=== PATIENT | female | born 1935 | race Caucasian/White ===

== ENCOUNTER 2024-10-01 06:42 | Day surgery (SDC) | payer MEDICARE, SELFPAY ==
--- OUTSIDE RECORDS SUMMARY | 2024-09-19 10:32 | XMS_ITS ---
Author Organization [facility] Address [address] [place] [id number] Care Team Providers Care Broomcorn Sorter Name Role Phone Kaila LUTZ, Lili Primary Care Provider Kiana Mauro Jr, Da Gonsalez [phone] REASON FOR VISIT diarrhea Encounters Encounter Location Date Provider Diagnosis [facility] [address] [place] [phone] 06/25/2024 Da Mauro Jr Diarrhea, unspecified type R19.7 Assessments Encounter Date Diagnosis (ICD Code) Assessment Notes Treatment Notes Treatment Clinical Notes Section Notes 06/25/2024 Diarrhea, unspecified type (ICD-10 - R19.7) Plan Of Treatment Pending Test Test Name Order Date OVA & PARASITES (O&P) 06/25/2024 STOOL WBC 06/25/2024 C DIFFICILE RFLX PCR 06/25/2024 GI PANEL 06/25/2024 Next Appt Details Provider Name:Da pearson Jr, 10/01/2024 07:30:00 AM, [address] [place] [address] , [place], [id number], Progress Notes * CAIRNE GONZALEZOB: 5 (89 yo F)Acc No.[id number]:06/25/2024 Patient:?PRIMITIVO GONZALEZ :1935???Age:89 Y???Sex:Female Address:[facility] [place] [address] Subjective: * Chief Complaints: * ???Diarrhea * Medical History:? * Surgical History:? * Hospitalization/Major Diagno stic Procedure:? * Medications:? Objective: * Vitals:? * Physical Examination:? Assessment: * Assessment: 1.?Diarrhea, unspecified typ e - R19.7 (Primary)??? Plan: * Treatment: * Procedure Codes:? * true * Date:? Generated for Ann green/Maura/Kattyitting on:?09/19/2024 10:31 AM EDT
[2024-09-27 13:01] VITALS: BMI 24.4
--- NOTE | 2024-09-30 10:17 | P.CONAN_ITS ---
Documented by User: Nikki Green NP 09/30/24 10:20 HPI - Anesthesia Eval Consult details Narrative: 89yo F for Colonoscopy PMHx R carotid stenosis, no further info/imaging available on [facility] and [facility] chart review [facility] Past Medical History Medical History History of pelvic fracture Pelvic prolapse Rectal prolapse Vitamin D deficiency Carotid stenosis, right Osteopenia Osteoarthritis Multinodular goiter HLD (hyperlipidemia) Diarrhea Surgical History Surgical History Hx of colonoscopy Social History Social History Advance Directives: No Advance Directives Information Provided: Yes Meds Allergies Allergy/AdvReac Type Severity Reaction Status Date / Time aspirin Allergy Unknown Verified 09/27/24 13:00 Home Medications ?Medication ?Instructions ?Recorded ?Confirmed ?Last Taken ?Type Metamucil 09/27/24 Unknown History Vitamin D3 09/27/24 Unknown History furosemide 20 mg tablet (Lasix) 20 mg PO DAILY 09/27/24 09/27/24 Unknown History lovastatin 10 mg tablet 10 mg PO DAILY 09/27/24 09/27/24 Unknown History Exam Height,Weight and Vital Signs: Height 5 ft 1 in Weight 58.513 kg Assessment and Plan Assessment Anesthesia Assessment: Chart Reviewed Documented by User: Suha Magallanes MD 10/01/24 07:28 [facility] Past Medical History Medical History History of pelvic fracture Pelvic prolapse Rectal prolapse Vitamin D deficiency Carotid stenosis, right Osteopenia Osteoarthritis Multinodular goiter HLD (hyperlipidemia) Diarrhea Surgical History Surgical History Hx of colonoscopy History of Problems with Anesthesia: No Social History Social History Advance Directives: No Advance Directives Information Provided: Yes Meds Allergies Allergy/AdvReac Type Severity Reaction Status Date / Time aspirin Allergy Unknown Verified 09/27/24 13:00 Home Medications ?Medication ?Instructions ?Recorded ?Confirmed ?Last Taken ?Type Metamucil 09/27/24 Unknown History Vitamin D3 09/27/24 Unknown History furosemide 20 mg tablet (Lasix) 20 mg PO DAILY 09/27/24 09/27/24 Unknown History lovastatin 10 mg tablet 10 mg PO DAILY 09/27/24 09/27/24 Unknown History Exam Airway Mallampati Class: III TM Dist: >3cm Neck ROM: Limited Loose/Missing/Broken Teeth: No Heart: RRR Lungs: CTA Assessment and Plan Assessment Anesthesia Assessment: Anesthesia Plan Discussed Final Anesthetic Review History of Problems with Anesthesia: No NPO: Yes ASA Class: III Final Preanesthetic Review: Meds/Allgs Chart Reviewed, Consent Obtained/Reviewed and Anes Risks/Benef Reviewed Patient Risk: Intermediate Procedure Risk: Low Anesthetic Plan Anesthetic Plan: MAC: Disposition: Standard PACU
[2024-10-01 07:24] VITALS: BP 134/65; PULSE 75; RESP 14; TEMP 36.7; O2SAT 98; BMI 24.8
--- NOTE | 2024-10-01 07:37 | MHC.SHP ---
Pre-Procedural Eval Section A - 24 Hr Update-Section A only Date of Service: 10/01/24 Section B - Complete if H&P > 30 days Chief Complaint: Family history of malignant neoplasm of digestive Details of Present Illness: see H&P no changes Relevant Family History (Specify if Yes): No Relevant Social History: None Present Medications: see Short Stay Collaborative assessment Medical History: No relevant PMH Allergies: Allergies Allergy/AdvReac Type Severity Reaction Status Date / Time aspirin Allergy Unknown Verified 10/01/24 07:35 Review of Systems Sugical H&P ROS: Negative: Constitution, Cardiovascular, Respiratory, Neurological, Psychiatric, Hem-Onc, Allergic/Immunologic, Gastrointestinal, Genitourinary, Musculoskeletal, Integumentary, Endocrine and Eyes/Ears/Nose/Throat Exam Surgical H&P Exam: Normal: HEENT, Normal: Heart, Normal: Lungs, Normal: Extremities, Normal: Abdomen, Normal: Skin and Normal: Neurological Plan Diagnosis/Plan: Unchanged I have reviewed the history and physical and performed a pertinent physical examination on my patient. No changes have occurred unless specified. Time Spent With Patient Time: Total time managing care of this patient today ____ minutes.
[2024-10-01 08:23] VITALS: BP 92/50; PULSE 63; RESP 18; TEMP 36.5; O2SAT 100
[2024-10-01 08:38] VITALS: BP 102/54; PULSE 68; RESP 16; TEMP 36.5; O2SAT 99
--- NOTE | 2024-10-01 09:04 | OP_ITS ---
DATE OF SERVICE: 10/01/2024 SURGEON: Da Mauro MD INDICATIONS: Family history and change in bowels. PREOPERATIVE DIAGNOSIS: POSTOPERATIVE DIAGNOSIS: PROCEDURE PERFORMED: Colonoscopy to the cecum with biopsy. ESTIMATED BLOOD LOSS: COMPLICATIONS: ANESTHESIA: Monitored anesthesia care. ASSISTANTS: SPECIMENS: DESCRIPTION OF PROCEDURE: A history and physical was performed. The risks and benefits of the procedure were explained to the patient. Informed consent was obtained. The patient was placed in the left lateral decubitus position. A digital rectal exam was performed and was found to be normal. The Olympus pediatric video colonoscope was introduced into the rectum and advanced to the cecum. The cecum was identified by transillumination, palpation, and identification of ileocecal valve. Examination was performed. The scope was removed. She tolerated the procedure well and was returned to the recovery area in stable condition. FINDINGS: The terminal ileum was not examined. The visualized colonic mucosa was normal. The quality of the prep was good. No polyps were identified. Retroflexed examination showed normal mucosa. Random biopsies were obtained from the sigmoid to rule out microscopic colitis. IMPRESSION: Normal colonoscopy. RECOMMENDATION: 1. Follow up the biopsy results. 2. Repeat colonoscopy could be considered in 5 years for increased risk of colon cancer. This is optional based on age. MD SIDNEY Alcantara/MALGORZATA / [id number]
== END 2024-10-01 09:05 | disposition home or self-care (01) ==
PROVIDERS: PCP Internal Medicine Geriatric Medicine; Visit Provider Internal Medicine Gastroenterology
PROC: 0DJD8ZZ Inspection of Lower Intestinal Tract, Via Natural or Artificial Opening Endoscopic (ICD-10-PCS; CPT 45378; principal; 2024-10-01 07:30)
DX: R19.4 Change in bowel habit (principal); Z80.0 Family history of malignant neoplasm of digestive organs; R19.7 Diarrhea, unspecified; E78.5 Hyperlipidemia, unspecified; I65.21 Occlusion and stenosis of right carotid artery; E04.2 Nontoxic multinodular goiter; E55.9 Vitamin D deficiency, unspecified; M19.90 Unspecified osteoarthritis, unspecified site; M85.80 Other specified disorders of bone density and structure, unspecified site; K62.3 Rectal prolapse; N81.89 Other female genital prolapse; Z87.81 Personal history of (healed) traumatic fracture; Z96.0 Presence of urogenital implants; Z79.899 Other long term (current) drug therapy; Z88.6 Allergy status to analgesic agent
CPT/HCPCS: 45380; 88305; J2003; J2704